=== PATIENT | female | born 2000 | race Two or more races ===

== ENCOUNTER → 2024-01-05 | Outpatient (CLI) | payer OTHER ==
[2024-01-05 09:11] LABS: Urine Bacteria None Seen /hpf (None Seen)
[2024-01-05 09:13] LABS: Basophils # (auto) 0 10 ^3/uL (0-0.2); Basophils % (auto) 0.5 % (0.0-2.0); Eosinophils # (auto) 0.2 10 ^3/uL (0-0.8); Eosinophils % (auto) 4.6 % (0.0-7.0); Hematocrit 36.6 % (36.0-46.0); Hemoglobin 12.5 g/dL (12.2-16.2); Lymphocytes # (auto) 1.9 10 ^3/uL (0.4-5.4); Lymphocytes % (auto) 45.5 % (10.0-50.0); Mean Corpuscular Hemoglobin 32.5 pg (28.0-32.0); Mean Corpuscular Hgb Conc. 34.1 g/dL (32.0-36.0); Mean Corpuscular Volume 95.1 fL (80.0-100.0); Monocytes # (auto) 0.3 10 ^3/uL (0-1.3); Monocytes % (auto) 7.1 % (0.0-12.0); Neutrophils # (auto) 1.7 10 ^3/uL (1.6-8.6); Neutrophils % (auto) 42.3 % (37.0-80.0); Nucleated Red Blood Cells % 0.1 %; Red Blood Cells 3.84 10^6/uL (4.0-5.20); Red Cell Distribution Width 13.9 % (11.8-14.3); White Blood Cell 4.1 10^3/uL (4.4-10.8)
[2024-01-05 09:28] LABS: Urine Blood 2+ /uL (Negative); Urine Clarity Clear (Clear); Urine Color Yellow (Yellow); Urine Hyaline Cast FEW /lpf (0 - 2); Urine Mucus MODERATE (None Seen); Urine Protein, UAD TRACE (Negative); Urine Specific Gravity 1.029 (1.001-1.035); Urine Urobilinogen Normal (Negative); Urine WBC 2 /hpf (0 - 5); Urine pH 5.5 (5.0-9.0)
[2024-01-05 10:02] LABS: Alanine Aminotransferase 36 U/L (7-40); Albumin 4.4 g/dL (3.2-4.8); Alkaline Phosphatase 75 U/L (46-116); Anion Gap 6 (5-15); Aspartate Aminotransferase 24 U/L (13-40); BUN/Creatinine Ratio 13.5 (10.0-20.0); Blood Urea Nitrogen 10 mg/dL (9-23); Calcium 9.6 mg/dL (8.7-10.4); Carbon Dioxide 27 mmol/L (20-30); Chloride 109 mmol/L (98-107); Glucose 88 mg/dL (74-106); LDL Cholesterol 93 mg/dL (< 100); Sodium 142 mmol/L (136-145); Triglycerides 49 mg/dL (< 150)
[2024-01-05 10:03] LABS: Bilirubin, Total 0.9 mg/dL (0.2-1.0); Cholesterol 153 mg/dL (< 200); HDL Cholesterol 55 mg/dL (40-59); Total Protein 6.9 g/dL (5.7-8.2)
[2024-01-05 10:04] LABS: Thyroid Stimulating Hormone 1.85 uIU/mL (0.55-4.78)
[2024-01-05 10:05] LABS: Beta HCG, Quantitative 0.6 mIU/mL (1.5-4.2)
== END | disposition home or self-care (01) ==
LOC: LAB 08:55
PROVIDERS: ATTEND Nurse Practitioner Family
DX: I10 Essential (primary) hypertension (principal); N97.9 Female infertility, unspecified
CPT/HCPCS: 36415; 80053; 80061; 81001; 84439; 84443; 84702; 85025